=== PATIENT | female | born 1955 | race Caucasian/White ===

== ENCOUNTER 2021-12-16 17:04 | Emergency (ER) | payer MEDICARE, BC ==
[~2021-12-16 17:04] MED LIST: Iopamidol 300 61% 100 ML VIAL FS ONE
[2021-12-16] MEDS ORDERED: Ondansetron PF 4 MG/2 ML Vial ONE (18:01)
[2021-12-16 18:26] LABS: #Eosinphils 0.1 10x3/uL (0.0-0.5); #Monocytes 0.4 10x3/uL (0.0-1.1); #Neutrophils 1.6 10x3/uL (1.5-8.4); %Basophils 0.5 % (0.0-2.0); %Eosinophils 1.8 % (0.0-6.0); %Monocytes 8.9 % (0.0-10.0); %Neutrophils 40.3 % (40.0-75.0); Hemoglobin 8.9 g/dL (12.0-15.5); Mean Corpuscular HGB CONC 32.6 g/dL (32.0-36.0); Mean Corpuscular Hemoglobin 29.1 pg (27.0-33.0); Mean Corpuscular Volume 89.2 fl (81.6-98.3); Mean Platelet Volume 9.6 fl (7.4-10.4); Platelet Count 112 10x3/uL (150-450); RBC Distribution Width 18.6 % (11.5-14.5); Red Blood Cell (RBC) Count 3.06 10x6/uL (3.90-5.03); White Blood Cell (WBC) Count 3.9 10x3/uL (3.5-10.5)
[2021-12-16] MEDS ORDERED: Fentanyl 100 MCG/2 ML VIAL ONE (18:30)
[2021-12-16 18:43] LABS: ALT (SGPT) 14 U/L (8-55); AST (SGOT) 17 U/L (5-34); Albumin 3.6 g/dL (3.4-4.8); Alkaline Phosphatase 99 U/L (40-110); Anion Gap 13 mmol/L (10-20); BUN (Urea Nitrogen) 5 mg/dL (9.8-20.1); Bilirubin, Total 0.6 mg/dL (0.2-1.2); Calc. Creatinine Clearance 0 mL/min (70-130); Calcium 8.6 mg/dL (7.8-10.44); Carbon Dioxide 28 mmol/L (23-31); Chloride 104 mmol/L (98-107); Estimated GFR 71; Globulin 2.2 g/dL (2.4-3.5); Glucose 88 mg/dL (80-115); Lipase 7 U/L (8-78); Potassium 4.1 mmol/L (3.5-5.1); Protein, Total 5.8 g/dL (5.8-8.1); Sodium 141 mmol/L (136-145)
== END 2021-12-16 20:05 | disposition home or self-care (01) ==
LOC: CSHERS 17:04
DX: K29.80 Duodenitis without bleeding (principal); I10 Essential (primary) hypertension; E78.5 Hyperlipidemia, unspecified; J44.9 Chronic obstructive pulmonary disease, unspecified
CPT/HCPCS: 74177; 80053; 83690; 84484; 85025; 96374; 96375; J2405; J3010; Q9967

== ENCOUNTER 2022-01-16 06:33 | Day surgery (SDC) | payer MEDICARE, BC ==
[2022-01-15 13:01] VITALS: BMI 35.0
[~2022-01-16 06:33] MED LIST changes: +Bupivacaine PF 0.5% 30 ML VIAL ONE; +EPINEPHrine 1 MG/ML AMP ONE; -Iopamidol 300 61% 100 ML VIAL FS ONE
[2022-01-16] MEDS ORDERED: CEFAZOLIN 2 GM VIAL ONE (06:52)
[2022-01-16] MEDS ORDERED: Ondansetron PF 4 MG/2 ML Vial ONE (07:02)
[2022-01-16] MEDS ORDERED: Fentanyl 100 MCG/2 ML VIAL ONE (07:02)
[2022-01-16] MEDS ORDERED: Dexamethasone 4 mg/ml Vial ONE (07:02)
[2022-01-16] MEDS ORDERED: Lidocaine 1% (PF) 30 ML VIAL ONE (07:02)
[2022-01-16] MEDS ORDERED: PROPOFOL 20 ML ONE (07:02)
[2022-01-16] MEDS ORDERED: PHENYLEPHRINE-NS 100 MCG/ML 10 ML SYRINGE ONE (07:35)
[2022-01-16] MEDS ORDERED: Acetaminophen 325 MG TAB PO PRN (08:20)
== END 2022-01-16 08:35 | disposition home or self-care (01) ==
LOC: CSHSDC 06:33
PROVIDERS: ATTEND Surgery
PROC: 02HV33Z Insertion of Infusion Device into Superior Vena Cava, Percutaneous Approach (ICD-10-PCS; principal; 2022-01-16)
PROC: B518ZZA Fluoroscopy of Superior Vena Cava, Guidance (ICD-10-PCS; 2022-01-16)
DX: C91.10 Chronic lymphocytic leukemia of B-cell type not having achieved remission (principal); I48.91 Unspecified atrial fibrillation; I10 Essential (primary) hypertension; E78.00 Pure hypercholesterolemia, unspecified; J45.909 Unspecified asthma, uncomplicated; F41.9 Anxiety disorder, unspecified; F32.A Depression, unspecified; M81.0 Age-related osteoporosis without current pathological fracture; H40.9 Unspecified glaucoma; G89.29 Other chronic pain; Z79.899 Other long term (current) drug therapy; Z79.01 Long term (current) use of anticoagulants; Z88.2 Allergy status to sulfonamides; Z88.5 Allergy status to narcotic agent; Z88.8 Allergy status to other drugs, medicaments and biological substances; Z20.822 Contact with and (suspected) exposure to COVID-19
CPT/HCPCS: 36561; C1788; J0171; J1100; J1642; J2001; J2405; J2704; J3010; S0020

== ENCOUNTER 2022-03-06 19:02 | Emergency (ER) | payer MEDICARE, BC ==
[2022-03-06 20:20] LABS: #Monocytes 0.3 10x3/uL (0.0-1.1); #Neutrophils 6.1 10x3/uL (1.5-8.4); %Basophils 0.1 % (0.0-2.0); %Monocytes 4.1 % (0.0-10.0); %Neutrophils 78.3 % (40.0-75.0); Hemoglobin 13.2 g/dL (12.0-15.5); Mean Corpuscular HGB CONC 33.4 g/dL (32.0-36.0); Mean Corpuscular Hemoglobin 30.5 pg (27.0-33.0); Mean Corpuscular Volume 91.2 fl (81.6-98.3); Mean Platelet Volume 9.6 fl (7.4-10.4); Platelet Count 167 10x3/uL (150-450); RBC Distribution Width 18.5 % (11.5-14.5); Red Blood Cell (RBC) Count 4.33 10x6/uL (3.90-5.03); White Blood Cell (WBC) Count 7.8 10x3/uL (3.5-10.5)
[2022-03-06 20:28] LABS: ALT (SGPT) 28 U/L (8-55); AST (SGOT) 20 U/L (5-34); Albumin 4.5 g/dL (3.4-4.8); Alkaline Phosphatase 89 U/L (40-110); Anion Gap 12 mmol/L (10-20); BUN (Urea Nitrogen) 9 mg/dL (9.8-20.1); Bilirubin, Total 0.3 mg/dL (0.2-1.2); Calc. Creatinine Clearance 0 mL/min (70-130); Calcium 9.5 mg/dL (7.8-10.44); Carbon Dioxide 27 mmol/L (23-31); Chloride 98 mmol/L (98-107); Estimated GFR 73; Globulin 2.4 g/dL (2.4-3.5); Glucose 116 mg/dL (80-115); Potassium 4.4 mmol/L (3.5-5.1); Protein, Total 6.9 g/dL (5.8-8.1); Sodium 133 mmol/L (136-145)
== END 2022-03-06 22:20 | disposition home or self-care (01) ==
LOC: CSHERS 19:02
DX: R51.9 Headache, unspecified (principal); I10 Essential (primary) hypertension; I25.10 Atherosclerotic heart disease of native coronary artery without angina pectoris; E78.5 Hyperlipidemia, unspecified; E03.9 Hypothyroidism, unspecified; J44.9 Chronic obstructive pulmonary disease, unspecified; F17.210 Nicotine dependence, cigarettes, uncomplicated
CPT/HCPCS: 36415; 71045; 80053; 83605; 83880; 84484; 85025; 93005

== ENCOUNTER 2022-07-04 15:18 | Outpatient (CLI) | payer MEDICARE, BC | END 2022-07-04 15:19 | disposition home or self-care (01) | LOC: CSHMRI 15:18 | PROVIDERS: ATTEND Specialist | DX: S32.030D Wedge compression fracture of third lumbar vertebra, subsequent encounter for fracture with routine healing (principal); M51.16 Intervertebral disc disorders with radiculopathy, lumbar region; M47.816 Spondylosis without myelopathy or radiculopathy, lumbar region; M48.061 Spinal stenosis, lumbar region without neurogenic claudication | CPT/HCPCS: 72148 ==

== ENCOUNTER 2022-09-05 09:36 | Outpatient (CLI) | payer MEDICARE, BC | END 2022-09-05 09:37 | disposition home or self-care (01) | LOC: CSHCP 09:36 | PROVIDERS: ATTEND Internal Medicine Critical Care Medicine | DX: J44.9 Chronic obstructive pulmonary disease, unspecified (principal); R94.2 Abnormal results of pulmonary function studies | CPT/HCPCS: 94060; 94664; 94726; 94729; 94760 ==

== ENCOUNTER 2023-05-29 08:26 | Outpatient (CLI) | payer MEDICARE, BC | END 2023-05-29 08:27 | disposition home or self-care (01) | LOC: CSHMRI 08:26 | PROVIDERS: ATTEND Nurse Practitioner Family | DX: S32.030D Wedge compression fracture of third lumbar vertebra, subsequent encounter for fracture with routine healing (principal); S22.000D Wedge compression fracture of unspecified thoracic vertebra, subsequent encounter for fracture with routine healing; Z98.890 Other specified postprocedural states; M48.061 Spinal stenosis, lumbar region without neurogenic claudication; M48.07 Spinal stenosis, lumbosacral region; M48.04 Spinal stenosis, thoracic region | CPT/HCPCS: 72146; 72148 ==

== ENCOUNTER 2024-03-08 09:30 | Outpatient (CLI) | payer MEDICARE, BC | END 2024-03-08 09:31 | disposition home or self-care (01) | LOC: CSHSLEEP 09:30 | PROVIDERS: ATTEND Internal Medicine Critical Care Medicine | DX: G47.33 Obstructive sleep apnea (adult) (pediatric) (principal); R53.83 Other fatigue; R06.83 Snoring | CPT/HCPCS: 95811 ==

== ENCOUNTER 2024-04-24 14:45 | Outpatient (CLI) | payer MEDICARE, BC | END 2024-04-24 14:46 | disposition home or self-care (01) | LOC: CSHMAMMO 14:45 | PROVIDERS: ATTEND Family Medicine | DX: Z12.31 Encounter for screening mammogram for malignant neoplasm of breast (principal); M81.0 Age-related osteoporosis without current pathological fracture; M85.852 Other specified disorders of bone density and structure, left thigh; Z78.0 Asymptomatic menopausal state; Z85.72 Personal history of non-Hodgkin lymphomas | CPT/HCPCS: 77063; 77067; 77080 ==